=== PATIENT | female | born 1980 | race Caucasian/White ===

== ENCOUNTER → 2017-02-05 | Outpatient (CLI) | payer BC ==
--- NOTE | 2017-02-05 08:44 | US ---
EXAMINATION TYPE: US pelvic complete DATE OF EXAM: 02/05/2017 7:49 AM COMPARISON: US on PACS March 10, 2011. CLINICAL HISTORY: R10.2 PELVIC PAIN. TECHNIQUE: Transvaginal (TV)pelvic ultrasound. Date of LMP: Ablation 4 months ago. Spotting 1 week ago. EXAM MEASUREMENTS: Uterus: 8.3 x 4.4 x 3.5 cm cm Endometrial Stripe: 0.2 cm Right Ovary: 2.4 x 2.1 x 1.9 cm cm Left Ovary: 3.2x 2.2 x 2.1 cm cm TECHNOLOGIST IMPRESSION: wnl 1. Uterus: Anteverted, wnl 2. Endometrium: heterogeneous 3. Right Ovary: wnl, with follicles. Largest = 1.0 x 1.0 x 0.9 cm 4. Left Ovary: wnl, with follicles. Largest = 1.2 x 1.1 x 1.0 cm 5. Bilateral Adnexa: wnl 6. Posterior cul-de-sac: wnl Uterus is heterogeneous in appearance. Endometrium is thinned. No free fluid is seen in pelvis. Both ovaries are identified. Scattered follicles are noted. No suspicious adnexal masses are seen. IMPRESSION: No significant finding is seen to account for patient's symptoms of pain .
== END | disposition home or self-care (01) ==
LOC: RADUSWWP 07:24
PROVIDERS: ATTEND Obstetrics & Gynecology
DX: R10.2 Pelvic and perineal pain (principal)
CPT/HCPCS: 76830; 76856

== ENCOUNTER → 2017-04-15 | Outpatient (CLI) | payer BC ==
[2017-04-15 09:15] LABS: Basophils % (A) 0 %; CH 30.2; CHCM 33.1; Eosinophils # (A) 0.1 k/uL (0-0.7); Eosinophils % (A) 1 %; HCT 43.2 % (34.0-46.0); HDW 2.42; HGB 14.1 gm/dL (11.4-16.0); Luc % (Auto) 1; Lymphocytes # (A) 1.3 k/uL (1.0-4.8); Lymphocytes % (A) 15 %; MCHC 32.7 g/dL (31.0-37.0); MCV 91.7 fL (80.0-100.0); Mean Platelet Volume 6.4; Monocytes # (A) 0.3 k/uL (0-1.0); Monocytes % (A) 4 %; Neutrophils # (A) 6.6 k/uL (1.3-7.7); Neutrophils % (A) 79 %; RBC 4.71 m/uL (3.80-5.40); WBC 8.4 k/uL (3.8-10.6); WBC (Perox) 8.29
[2017-04-15 09:26] LABS: Anion Gap 11 mmol/L; Blood Urea Nitrogen 13 mg/dL (7-17); Calcium 9.5 mg/dL (8.4-10.2); Carbon Dioxide 21 mmol/L (22-30); Chloride 108 mmol/L (98-107); Glucose 94 mg/dL (74-99); Non-African American GFR(MDRD) >60 (>60 ml/min/1.73 sqM); Potassium 4.1 mmol/L (3.5-5.1); Sodium 140 mmol/L (137-145)
== END | disposition home or self-care (01) ==
LOC: LABPAT 08:28
PROVIDERS: ATTEND Obstetrics & Gynecology
DX: Z01.812 Encounter for preprocedural laboratory examination (principal)
CPT/HCPCS: 80048; 85025

== ENCOUNTER 2017-04-23 06:24 | Observation (INO) | payer BC ==
[2017-04-20 12:22] VITALS: BMI 22.8
[~2017-04-23 06:24] MED LIST: DEXAMETHASONE SOD PHOSPHATE 10 MG/ML 1 ML VIAL IV ONE; MIDAZOLAM 2 MG/2 ML VIAL IV PRN; ONDANSETRON 4 MG/2 ML VIAL IVP ONE; ceFAZolin 2 GM in SODIUM CHLORIDE 0.9% 100 ML IVPB ONE
[2017-04-23] MEDS ORDERED: SCOPOLAMINE 1.5MG/72HR PATCH TRANSDERM ONE (07:10)
[2017-04-23] MEDS: LACTATED RINGERS 1,000 ML IV SCH ×2 (07:10→15:26)
--- NOTE | 2017-04-23 07:47 | P.HPOB ---
History of Present Illness H&P Date: 04/23/17 Chief Complaint: Pelvic pain: Post-ablative syndrome Patient is a 36 year old female who had a NovaSure ablation in May 2016. Since that time she's had chronic worsening pain. Her pain is gone but she is unable to function and is progressively worsened over the last 3 months. 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 Risks/ benefits/alternatives to a robotic-assisted left scopic hysterectomy were reviewed with the patient in detail and included but were not limited to damage to bladder, bowel, vascular injuries, nerve injuries, bleeding, infection. all questions have been answered for her prior to proceeding to the operating room. Her physical exam reveals vital signs be saved stable and afebrile. Heart regular, lungs clear, extremities without pain. Pelvic exam other than mild to moderate tenderness over the uterus was unremarkable. Abdominal exam revealed no gross findings. Positive bowel sounds were noted. Assessment chronic pelvic pain status post ablation. Plan robotic-assisted laparoscopic hysterectomy with possible BSO. Past Medical History Additional Past Medical History / Comment(s): irregular and heavy menses with cramping,hx ovarian cysts History of Any Multi-Drug Resistant Organisms: None Reported Additional Past Surgical History / Comment(s): laparoscopic x 3 Past Anesthesia/Blood Transfusion Reactions: Family History of Problems w/ Anesthesia, Postoperative Nausea & Vomiting (PONV) Additional Past Anesthesia/Blood Transfusion Reaction / Comment(s): mom has PONV. no hx blood transfusion Past Psychological History: No Psychological Hx Reported Smoking Status: Never smoker Past Alcohol Use History: Occasional Past Drug Use History: None Reported - Past Family History Mother Family Medical History: Cancer Additional Family Medical History / Comment(s): breast Father Family Medical History: Asthma Medications and Allergies Home Medications Medication Instructions Recorded Confirmed Type Fexofenadine/Pseudoephedrine 1 each PO DAILY 06/06/16 04/20/17 History [Graciela-D 24 Hour Tablet] Triamcinolone Acetonide [Nasacort] 1 spray EA NOSTRIL DAILY 06/06/16 04/20/17 History Allergies Allergy/AdvReac Type Severity Reaction Status Date / Time Sulfa (Sulfonamide Allergy Rash/Hives Verified 04/23/17 06:55 Antibiotics) Exam Osteopathic Statement: *. No significant issues noted on an osteopathic structural exam other than those noted in the History and Physical/Consult. - Vital Signs Vital signs: Vital Signs Temp Pulse Resp BP Pulse Ox 04/23/17 06:49 97.4 F L 68 16 126/78 99
[2017-04-23] MEDS ORDERED: HYDROmorphone (PF) 1 MG/ML ONE (08:02)
[2017-04-23] MEDS ORDERED: fentaNYL (PF) 50 MCG/ML 2 ML AMP ONE (08:02)
[2017-04-23] MEDS ORDERED: GLYCOPYRROLATE 0.2 MG/ML 2 ML VIAL ONE (08:02)
[2017-04-23] MEDS ORDERED: LIDOCAINE 1% INJ 10MG/ML (20 ML MDV) ONE (08:02)
[2017-04-23] MEDS ORDERED: MIDAZOLAM 2 MG/2 ML VIAL ONE (08:02)
[2017-04-23] MEDS ORDERED: SUCCINYLCHOLINE CHLORIDE 100 MG/5 ML SYR IV ONE (08:02)
[2017-04-23] MEDS ORDERED: PHENYLEPHRINE-0.9% NACL SYG 1 MG/10 ML SYRINGE ONE (08:02)
[2017-04-23] MEDS ORDERED: ROCURONIUM BROMIDE 10 MG/ML 10 ML VIAL IV ONE (08:02)
[2017-04-23] MEDS ORDERED: PROPOFOL 10 MG/ML 20 ML VIAL IV ONE (08:02)
[2017-04-23] MEDS ORDERED: KETOROLAC 30 MG/ML 1 ML VIAL ONE (08:02)
[2017-04-23] MEDS ORDERED: NEOSTIGMINE 1 MG/ML 10 ML VIAL ONE (08:02)
[2017-04-23] MEDS ORDERED: BUPIVACAINE (PF) 0.25% 30 ML VIAL SQ ONE (08:20)
[2017-04-23] MEDS ORDERED: Acetaminophen-Codeine 300-30mg TAB PO PRN ×2 (09:04)
[2017-04-23] MEDS ORDERED: diphenhydrAMINE 50 MG/ML 1 ML VIAL IVP PRN (09:04)
[2017-04-23] MEDS ORDERED: SIMETHICONE 80 MG CHEWABLE PO PRN (09:04)
[2017-04-23] MEDS ORDERED: ONDANSETRON 4 MG/2 ML VIAL IVP PRN (09:04)
--- NOTE | 2017-04-23 09:12 | P.OP ---
Date of Procedure: 04/23/17 Preoperative Diagnosis: Pelvic pain Postoperative Diagnosis: Same Procedure(s) Performed: Robotic-assisted laparoscopic hysterectomy Implants: Anesthesia: JEAN MARIE Surgeon: Francis Taveras Underpresser Hand #1: Loren Lal Estimated Blood Loss (ml): 10 IV fluids (ml): 900 Urine output (ml): 500 Pathology: other (Uterus and cervix) Condition: stable Disposition: floor Indications for Procedure: Operative Findings: Perforation noted at time of dilation. Suspect adenomyosis await final tissue pathology. Ovaries appeared grossly normal Description of Procedure: Patient was taken to the operating suite where a general anesthetic was found be adequate. She was prepped and draped in the normal sterile fashion and placed in the dorsal lithotomy position. Initially a speculum was inserted in the vagina and the anterior lip of the cervix was grasped a single-tooth tenaculum. Sutures then placed at 3-9/10 clock position in the cervix was dilated. During the sounding process that uterus perforated and was felt to be only 6 cm in length. A 6 cm with a 3 cm cup was then inserted using a Orabrush manipulator other instruments were removed and the John catheter was placed. Gloves were then changed and attention was turned to the abdominal portion of the procedure. Approximately 2 mL of quarter percent Marcaine was then injected periumbilically and through this injected anesthetic a 5 mm skin incision was made. Through this incision under direct visualization with an optical trocar and sleeve the camera was inserted once peritoneal placement was assured gas was allowed to fully insufflate the abdomen. 2 lateral ports were then placed proxy 10 cm from the umbilicus both the right and left-hand sides and through these incisions 8 mm robotic ports and sleeves were inserted. A fourth port and sleeve was then inserted slightly superior to and between the left lateral and the medial port. Robotic camera port was then inserted again all these were done under direct visualization. Once this was accomplished robot was brought in and docked at this point I did break scrub and go to the console using a scissor and the one arm and a Maryland grasper in the 2 arm initially observations the pelvis were done uterus was then elevated and tipped to the right-hand side and utero-ovarian ligament was cauterized and cut mesosalpinx tissues and then the fallopian tube were then also cauterized and cut all the way to the round ligament. Remley was then cauterized and cut and development of the anterior and posterior broad ligament leaves was done while skeletonizing the vascularity. Once down to the bladder flap bladder flap was undermined with Maryland and incised with a scissor all the way across face uterus and the bladder was bluntly dissected off of the operative field. Uterine within tipped to left-hand side and in a similar fashion the right-hand side of the uterus and tissues were developed. Once this was accomplished Maryland grasper was then used to cauterize uterine vasculature bilaterally. Balloon on the manipulator was then inflated and anterior colpotomy was made with a scissor. We followed these couple all the way around in a 3 and 60 fashion cheating head when necessary to obtain and maintain excellent hemostasis. Once 3 and 60 was obtained uterus was brought into the vagina to maintain pneumoperitoneum. Area was irrigated C no significant bleeding instruments were exchanged for a make suture cut and a cardia grasper and the vaginal cuff was closed with 20 be lock suture. Once this was accomplished pelvis was again irrigated instruments were then removed and gas was allowed to expel from the abdomen. 5 deep breaths were provided during this process. Robot was then undocked and moved out of the operative field and attention was then turned to the incision repair which Dr. Lal did with 4-0 Vicryl with the remaining 8 mL of quarter percent Marcaine injected around the incisions. and a cystoscopy which I did showing good flow from both ureteral jets. Once this was accomplished all instruments were removed sponge, lap, needle counts were all correct 2 and patient was then taken to the recovery room in stable and satisfactory condition following reinsertion of the John catheter.
[2017-04-23] MEDS: HYDROmorphone 1 MG/ML 1 ML SYRINGE IVP PRN ×2 (09:25→09:30)
[2017-04-23] MEDS ORDERED: RACEPINEPHRINE 2.25% NEB 0.5 ML NEBU INHALATION ONE (09:37)
[2017-04-23] MEDS: KETOROLAC 30 MG/ML 1 ML VIAL IVP PRN ×2 (15:21→21:20)
[2017-04-23] MEDS ORDERED: SENNOSIDES-DOCUSATE SODIUM 1 EACH TAB PO SCH (21:00)
[2017-04-24] MEDS: KETOROLAC 30 MG/ML 1 ML VIAL IVP PRN ×2 (03:23→09:20)
[2017-04-24 07:32] LABS: Basophils % (A) 0 %; CH 30.6; CHCM 32.9; Eosinophils # (A) 0.1 k/uL (0-0.7); Eosinophils % (A) 1 %; HCT 37.2 % (34.0-46.0); HDW 2.27; Luc # (Auto) 0.11; Luc % (Auto) 2; Lymphocytes # (A) 1.8 k/uL (1.0-4.8); Lymphocytes % (A) 24 %; MCH 30.1 pg (25.0-35.0); MCHC 32.3 g/dL (31.0-37.0); MCV 93.4 fL (80.0-100.0); Mean Platelet Volume 6.7; Monocytes # (A) 0.3 k/uL (0-1.0); Monocytes % (A) 5 %; Neutrophils # (A) 5.1 k/uL (1.3-7.7); Neutrophils % (A) 68 %; RBC 3.99 m/uL (3.80-5.40); RDW 12.8 % (11.5-15.5); WBC 7.4 k/uL (3.8-10.6); WBC (Perox) 7.38
[2017-04-24 08:17] VITALS: RESP 20
[2017-04-24 08:18] VITALS: BP 108/59; PULSE 58; TEMP 98.2
--- NOTE | 2017-04-24 08:49 | P.DS ---
Providers Date of admission: 04/24/17 03:43 Expected date of discharge: 04/24/17 Attending physician: Francis Taversa Primary care physician: [facility] Course: Patient is doing very well postop day 1 from a left scopic hysterectomy. She is involuting, voiding, and she is tolerating her diet. She has passed flatus. Vital signs are stable and afebrile. Heart regular, lungs clear, extremities without pain. Abdomen soft and incisions are intact. Bowel sounds are noted. Assessment postop day 1. Plan discharged home follow up with me in 1 week. Prescription for Ultram and Motrin have been provided. Discharge instructions were thoroughly reviewed and all questions are answered for her prior to discharge. She is stable for discharge at this time. Patient Condition at Discharge: Good Plan - Discharge Summary New Discharge Prescriptions: New Ibuprofen [Motrin] 600 mg PO Q6HR PRN #30 tab PRN Reason: Pain traMADol HCl [Ultram] 50 mg PO Q4H PRN #30 tab PRN Reason: Pain No Action Triamcinolone Acetonide [Nasacort] 1 spray EA NOSTRIL DAILY Fexofenadine/Pseudoephedrine [Graciela-D 24 Hour Tablet] 1 each PO DAILY Ibuprofen [Motrin] 600 mg PO Q6HR PRN #30 tab PRN Reason: Pain Discharge Medication List Fexofenadine/Pseudoephedrine [Graciela-D 24 Hour Tablet] 1 each PO DAILY [History] Triamcinolone Acetonide [Nasacort] 1 spray EA NOSTRIL DAILY 06/06/16 [History] Ibuprofen [Motrin] 600 mg PO Q6HR PRN #30 tab 06/12/16 [Rx] Ibuprofen [Motrin] 600 mg PO Q6HR PRN #30 tab 04/24/17 [Rx] traMADol HCl [Ultram] 50 mg PO Q4H PRN #30 tab 04/24/17 [Rx] Follow up Appointment(s)/Referral(s): Francis Taveras DO [Doctor of Osteopathic Medicine] - 1 Week Activity/Diet/Wound Care/Special Instructions: No heavy lifting, limit stairs and driving and pelvic rest. If any high temperatures, heavy bleeding, or severe pain call my office. Discharge Disposition: HOME SELF-CARE
== END 2017-04-24 10:25 | disposition home or self-care (01) ==
LOC: OR 06:24 → 4FBP 09:08 → OR 04-24 03:43
PROVIDERS: ADMIT Obstetrics & Gynecology; ATTEND Obstetrics & Gynecology
DX: N80.0 Endometriosis of uterus (principal); D26.1 Other benign neoplasm of corpus uteri; G89.29 Other chronic pain; N92.1 Excessive and frequent menstruation with irregular cycle; Z88.2 Allergy status to sulfonamides; N99.71 Accidental puncture and laceration of a genitourinary system organ or structure during a genitourinary system procedure; Y65.8 Other specified misadventures during surgical and medical care
CPT/HCPCS: 58550; S2900; 81025; 85025; 86850; 86900; 86901; 88307; 88341; 88342

== ENCOUNTER → 2017-10-05 | Outpatient (CLI) | payer BC ==
--- NOTE | 2017-10-05 17:52 | US ---
EXAMINATION TYPE: US pelvic complete DATE OF EXAM: 10/05/2017 COMPARISON: 02/05/2017 CLINICAL HISTORY: R39.82 Bladder Pain. Pelvic pain, partial hysterectomy TECHNIQUE: Transabdominal (TA) Date of LMP: unknown EXAM MEASUREMENTS: Uterus: Surgically absent Endometrial Stripe: Surgically absent Right Ovary: 2.5 x 1.9 x 1.8 cm Left Ovary: 3.2 x 1.7 x 1.4 cm 1. Uterus: surgically absent vaginal cuff = 0.9cm 2. Endometrium: Surgically absent 3. Right Ovary: follicles noted 4. Left Ovary: follicles noted 5. Bilateral Adnexa: wnl IMPRESSION: Negative transabdominal pelvic sonogram.
--- NOTE | 2017-10-05 17:53 | US ---
EXAMINATION TYPE: US abd limited kidneys/bladder DATE OF EXAM: 10/05/2017 COMPARISON: NONE CLINICAL HISTORY: R39.82 Bladder Pain. Pelvic pain EXAM MEASUREMENTS: Liver Length: 12.6 cm Gallbladder Wall: 0.2 cm CBD: 0.2 cm Right Kidney: 9.9 x 3.4 x 4.6 cm Left Kidney: 9.0 x 5.0 x 4.4 cm Pancreas: visualized portions appear wnl Liver: wnl Gallbladder: no evidence of stones CBD: wnl Right Kidney: no evidence of hydronephrosis or mass Left Kidney: no evidence of hydronephrosis or mass Bladder: wnl Bilateral Jets Seen yes IMPRESSION: Normal retroperitoneal sonogram exam. No evidence of renal mass or obstruction.
== END | disposition home or self-care (01) ==
LOC: RADUSMAIN 16:42
PROVIDERS: ATTEND Family Medicine
DX: R39.82 Chronic bladder pain (principal)
CPT/HCPCS: 76705; 76770; 76856

== ENCOUNTER → 2019-04-22 | Outpatient (CLI) | payer BC ==
--- NOTE | 2019-04-22 10:14 | US ---
EXAMINATION TYPE: US abdomen complete DATE OF EXAM: 04/22/2019 COMPARISON: 10/05/2017 CLINICAL HISTORY: R93.89 Abnormal xray @ [facility]. Patient states having chronic back pain. Patient state s having an xray of spine at office that showed abnormality. EXAM MEASUREMENTS: Liver Length: 13.9 cm Gallbladder Wall: 0.1 cm CBD: 0.2 cm CHD: 0.2 cm Spleen: 10.9 cm Right Kidney: 9.1 x 4.7 x 3.8 cm Left Kidney: 9.6 x 4.6 x 5.0 cm Pancreas: wnl Liver: wnl Gallbladder: wnl Evidence for sonographic Fernandez's sign: neg CBD: wnl CHD: wnl Spleen: wnl Right Kidney: wnl Left Kidney: wnl Upper IVC: wnl Abd Aorta: wnl The liver is homogenous. The intrahepatic portion of the IVC and proximal abdominal aorta are within normal limits. There is no evidence of cholelithiasis. Common bile duct is unremarkable. The visu alized portions of the pancreas are homogenous. The spleen is unremarkable. Kidneys are symmetric a nd free of hydronephrosis. No renal lesions are seen. IMPRESSION: Unremarkable abdominal ultrasound.
== END | disposition home or self-care (01) ==
LOC: RADUSWWP 09:03
PROVIDERS: ATTEND Internal Medicine
DX: R93.89 Abnormal findings on diagnostic imaging of other specified body structures (principal)
CPT/HCPCS: 76700

== ENCOUNTER → 2020-01-16 | Outpatient (CLI) | payer BC ==
[2020-01-16 17:15] LABS: T4, Free (Free Thyroxine) 0.96 ng/dL (0.78-2.19)
[2020-01-16 23:36] LABS: Estradiol 44.6 pg/mL; Follicle Stimulating Hormone 8.4 mIU/mL; Luteinizing Hormone 4.5 mIU/mL; Prolactin 6.9 ng/mL (2.8-29.2)
--- NOTE | 2020-01-18 07:32 | MM ---
Reason for exam: screening (asymptomatic). Last mammogram was performed 3 years and 3 months ago. History: Family history of breast cancer in mother at age 54. Physical Findings: A clinical breast exam by your physician is recommended on an annual basis and results should be correlated with mammographic findings. MG 3D Screening Mammo W/Cad Bilateral CC and MLO view(s) were taken. Prior study comparison: October 23, 2016, bilateral MG 3d diag mammo w/cad [facility]. October 19, 2015, bilateral MG 3d diag mammo w/cad [facility]. The breast tissue is extremely dense which could obscure a lesion on mammography. No significant changes when compared with prior studies. ASSESSMENT: Benign, BI-RAD 2 RECOMMENDATION: Routine screening mammogram of both breasts in 1 year.
== END | disposition home or self-care (01) ==
LOC: RADMAMWWP 15:09
PROVIDERS: ATTEND Obstetrics & Gynecology
DX: Z12.31 Encounter for screening mammogram for malignant neoplasm of breast (principal)
CPT/HCPCS: 36415; 77063; 77067; 82670; 83001; 83002; 84146; 84439; 84443; 84479

== ENCOUNTER → 2021-06-24 | Outpatient (CLI) | payer BC ==
--- NOTE | 2021-06-25 09:10 | MM ---
Reason for exam: screening (asymptomatic). Last mammogram was performed 1 year and 5 months ago. History: Family history of breast cancer in mother at age 54. Physical Findings: A clinical breast exam by your physician is recommended on an annual basis and results should be correlated with mammographic findings. MG 3D Screening Mammo W/Cad Bilateral CC and MLO view(s) were taken. Prior study comparison: January 16, 2020, bilateral MG 3d screening mammo w/cad. October 23, 2016, bilateral MG 3d diag mammo w/cad [facility]. The breast tissue is extremely dense which could obscure a lesion on mammography. Benign appearing bilateral calcifications. No significant changes when compared with prior studies. ASSESSMENT: Benign, BI-RAD 2 RECOMMENDATION: Routine screening mammogram of both breasts in 1 year.
== END | disposition home or self-care (01) ==
LOC: RADMAMWWP 09:44
PROVIDERS: ATTEND Internal Medicine
DX: Z12.31 Encounter for screening mammogram for malignant neoplasm of breast (principal); Z80.3 Family history of malignant neoplasm of breast
CPT/HCPCS: 77063; 77067

== ENCOUNTER → 2022-06-25 | Outpatient (CLI) | payer BC ==
--- NOTE | 2022-06-26 09:56 | MM ---
Reason for Exam: Screening (asymptomatic). Last screening mammogram was performed 12 month(s) ago. Patient History: Menarche at age 11. First Full-Term at age 21. Hysterectomy at age 36. Mother had breast cancer, age 54. Risk Values: Ophelia 5 year model risk: 1.3%. NCI Lifetime model risk: 18.0%. Prior Study Comparison: 10/23/2016 Bilateral Diagnostic Mammogram, [facility]. 01/16/2020 Bilateral Screening Mammogram, [facility]. 06/24/2021 Bilateral Screening Mammogram, [facility]. Tissue Density: The breast tissue is heterogeneously dense. This may lower the sensitivity of mammography. Findings: Analyzed By CAD. There is no suspicious group of microcalcifications or new suspicious mass in either breast. Overall Assessment: Negative, BI-RAD 1 Management: Screening Mammogram of both breasts in 1 year. A clinical breast exam by your physician is recommended on an annual basis and results should be correlated with mammographic findings. Electronically signed and approved by: Jair Vance DO
== END | disposition home or self-care (01) ==
LOC: RADMAMWWP 12:47
PROVIDERS: ATTEND Family Medicine
DX: Z12.31 Encounter for screening mammogram for malignant neoplasm of breast (principal); Z80.3 Family history of malignant neoplasm of breast
CPT/HCPCS: 77063; 77067

== ENCOUNTER 2022-11-01 08:36 | Emergency (ER) | payer BC ==
[2022-11-01 08:48] VITALS: RESP 18; TEMP 98.4
[2022-11-01] MEDS ORDERED: SODIUM CHLORIDE 0.9% 1,000 ML IV STA (08:56)
[2022-11-01] MEDS ORDERED: HYDROmorphone 0.5 MG/0.5 ML SYRINGE IVP STA (08:56)
[2022-11-01] MEDS ORDERED: ONDANSETRON 4 MG/2 ML VIAL IVP STA (08:56)
--- NOTE | 2022-11-01 09:02 | ED ---
Abdominal Pain HPI - General Chief Complaint: Abdominal Pain Stated Complaint: abd pain Time Seen by Provider: 11/01/22 08:48 Source: patient Mode of arrival: ambulatory - History of Present Illness Initial Comments: Patient is a 41-year-old female presenting with chief complaint of abdominal pain. Patient states that the pain started at 1 AM today sudden onset, severe and stabbing in nature. Located primarily in the right upper quadrant and epigastric region. No nausea, vomiting, diarrhea. Patient states that when the pain is at its worst it does radiate to the right shoulder. Past surgical history includes hysterectomy. No fever or chills. No chest pain, difficulty breathing, palpitations. - Related Data Home Medications Medication Instructions Recorded Confirmed Fexofenadine/Pseudoephedrine 1 each PO DAILY 06/06/16 04/20/17 [Graciela-D 24 Hour Tablet] Triamcinolone Acetonide [Nasacort] 1 spray EA NOSTRIL DAILY 06/06/16 04/20/17 Previous Rx's Medication Instructions Recorded Ibuprofen [Motrin] 600 mg PO Q6HR PRN #30 tab 06/12/16 Ibuprofen [Motrin] 600 mg PO Q6HR PRN #30 tab 04/24/17 traMADol HCl [Ultram] 50 mg PO Q4H PRN #30 tab 04/24/17 Allergies Allergy/AdvReac Type Severity Reaction Status Date / Time Sulfa (Sulfonamide Allergy Rash/Hives Verified 11/01/22 08:48 Antibiotics) Review of Systems ROS Statement: Those systems with pertinent positive or pertinent negative responses have been documented in the HPI. ROS Other: All systems not noted in ROS Statement are negative. Past Medical History Additional Past Medical History / Comment(s): irregular and heavy menses with cramping,hx ovarian cysts History of Any Multi-Drug Resistant Organisms: None Reported Past Surgical History: Hysterectomy Additional Past Surgical History / Comment(s): laparoscopic x 3. spinal fusion [id number] Past Anesthesia/Blood Transfusion Reactions: Family History of Problems w/ Anesthesia, Postoperative Nausea & Vomiting (PONV) Additional Past Anesthesia/Blood Transfusion Reaction / Comment(s): mom has PONV. no hx blood transfusion Past Psychological History: No Psychological Hx Reported Smoking Status: Never smoker Past Alcohol Use History: Occasional Past Drug Use History: None Reported - Past Family History Mother Family Medical History: Cancer Additional Family Medical History / Comment(s): breast Father Family Medical History: Asthma General Exam Limitations: no limitations General appearance: alert, in no apparent distress Head exam: Present: atraumatic, normocephalic, normal inspection Eye exam: Present: normal appearance Neck exam: Present: normal inspection Respiratory exam: Present: normal lung sounds bilaterally. Absent: respiratory distress, wheezes, rales, rhonchi, stridor Cardiovascular Exam: Present: regular rate, normal rhythm, normal heart sounds. Absent: systolic murmur, diastolic murmur, rubs, gallop, clicks GI/Abdominal exam: Present: soft, tenderness (R sided). Absent: distended, guarding, rebound, rigid Neurological exam: Present: alert, oriented X3, CN II-XII intact Psychiatric exam: Present: normal affect, normal mood Skin exam: Present: warm, dry, intact, normal color. Absent: rash Course Vital Signs 11/01/22 11/01/22 08:43 13:05 Temperature 98.4 F Pulse Rate 115 H 99 Respiratory 18 18 Rate Blood Pressure 133/83 114/72 O2 Sat by Pulse 100 100 Oximetry Medical Decision Making - Medical Decision Making Patient is a 41-year-old female presenting with chief complaint of abdominal pain. On physical examination abdomen is soft and nondistended, there is some tenderness in the right upper quadrant and epigastric region. EKG shows no ischemic changes. CBC shows no leukocytosis or anemia. Coags are WNL. D-dimer is 0.42. Electrolytes are WNL. Troponin is less than 0.012. Urine shows no sign of infection or bleeding. Abdominal ultrasound shows no evidence for acute process. CT shows no definitive acute process in the upper abdomen to explain the patient's pain there is nondistended gallbladder and no hiatal hernia. 3 ap pendicoliths are seen in the appendix, however patient is not having any right lower quadrant pain at this time. On reassessment patient reports improvement in pain. Discussed these results with her. Patient is agreeable to discharge home. Follow-up with PCP. Report back to ER with any new or worsening symptoms. Discussed return parameters and answered all questions. Patient conveyed verbal understanding and agreed to the plan. I discussed this case in detail with my attending Dr. Ledezma - Lab Data Result diagrams: 11/01/22 09:05 11/01/22 09:05 Lab Results 11/01/22 11/01/22 11/01/22 Range/Units 09:05 09:05 09:05 WBC 10.0 (3.8-10.6) k/uL RBC 4.95 (3.80-5.40) m/uL Hgb 15.3 (11.4-16.0) gm/dL Hct 43.9 (34.0-46.0) % MCV 88.7 (80.0-100.0) fL MCH 30.8 (25.0-35.0) pg MCHC 34.7 (31.0-37.0) g/dL RDW 12.7 (11.5-15.5) % Plt Count 197 (150-450) k/uL MPV 7.4 Neutrophils % 91 % Lymphocytes % 4 % Monocytes % 3 % Eosinophils % 2 % Basophils % 0 % Neutrophils # 9.1 H (1.3-7.7) k/uL Lymphocytes # 0.4 L (1.0-4.8) k/uL Monocytes # 0.3 (0-1.0) k/uL Eosinophils # 0.2 (0-0.7) k/uL Basophils # 0.0 (0-0.2) k/uL PT 10.0 (9.0-12.0) sec INR 0.9 (<1.2) APTT 25.2 (22.0-30.0) sec D-Dimer (<0.60) mg/L FEU Sodium (137-145) mmol/L Potassium (3.5-5.1) mmol/L Chloride (98-107) mmol/L Carbon Dioxide (22-30) mmol/L Anion Gap mmol/L BUN (7-17) mg/dL Creatinine (0.52-1.04) mg/dL Est GFR (CKD-EPI)AfAm (>60 ml/min/1.73 sqM) Est GFR (CKD-EPI)NonAf (>60 ml/min/1.73 sqM) Glucose (74-99) mg/dL Plasma Lactic Acid Nacho (0.7-2.0) mmol/L Calcium (8.4-10.2) mg/dL Total Bilirubin (0.2-1.3) mg/dL AST (14-36) U/L ALT (4-34) U/L Alkaline Phosphatase (38-126) U/L Troponin I (0.000-0.034) ng/mL Total Protein (6.3-8.2) g/dL Albumin (3.5-5.0) g/dL Amylase (30-110) U/L Lipase (23-300) U/L Urine Color Yellow Urine Appearance Clear (Clear) Urine pH 6.5 (5.0-8.0) Ur Specific Brant 1.029 (1.001-1.035) Urine Protein Trace H (Negative) Urine Glucose (UA) Negative (Negative) Urine Ketones 2+ H (Negative) Urine Blood Negative (Negative) Urine Nitrite Negative (Negative) Urine Bilirubin Negative (Negative) Urine Urobilinogen <2.0 (<2.0) mg/dL Ur Leukocyte Esterase Negative (Negative) 11/01/22 11/01/22 11/01/22 Range/Units 09:05 09:05 09:05 WBC (3.8-10.6) k/uL RBC (3.80-5.40) m/uL Hgb (11.4-16.0) gm/dL Hct (34.0-46.0) % MCV (80.0-100.0) fL MCH (25.0-35.0) pg MCHC (31.0-37.0) g/dL RDW (11.5-15.5) % Plt Count (150-450) k/uL MPV Neutrophils % % Lymphocytes % % Monocytes % % Eosinophils % % Basophils % % Neutrophils # (1.3-7.7) k/uL Lymphocytes # (1.0-4.8) k/uL Monocytes # (0-1.0) k/uL Eosinophils # (0-0.7) k/uL Basophils # (0-0.2) k/uL PT (9.0-12.0) sec INR (<1.2) APTT (22.0-30.0) sec D-Dimer 0.42 (<0.60) mg/L FEU Sodium 140 (137-145) mmol/L Potassium 3.8 (3.5-5.1) mmol/L Chloride 105 (98-107) mmol/L Carbon Dioxide 24 (22-30) mmol/L Anion Gap 11 mmol/L BUN 18 H (7-17) mg/dL Creatinine 0.78 (0.52-1.04) mg/dL Est GFR (CKD-EPI)AfAm >90 (>60 ml/min/1.73 sqM) Est GFR (CKD-EPI)NonAf >90 (>60 ml/min/1.73 sqM) Glucose 111 H (74-99) mg/dL Plasma Lactic Acid Nacho 1.5 (0.7-2.0) mmol/L Calcium 9.6 (8.4-10.2) mg/dL Total Bilirubin 1.2 (0.2-1.3) mg/dL AST 26 (14-36) U/L ALT 24 (4-34) U/L Alkaline Phosphatase 81 (38-126) U/L Troponin I (0.000-0.034) ng/mL Total Protein 7.9 (6.3-8.2) g/dL Albumin 5.0 (3.5-5.0) g/dL Amylase 72 (30-110) U/L Lipase 126 (23-300) U/L Urine Color Urine Appearance (Clear) Urine pH (5.0-8.0) Ur Specific Brant (1.001-1.035) Urine Protein (Negative) Urine Glucose (UA) (Negative) Urine Ketones (Negative) Urine Blood (Negative) Urine Nitrite (Negative) Urine Bilirubin (Negative) Urine Urobilinogen (<2.0) mg/dL Ur Leukocyte Esterase (Negative) 11/01/22 Range/Units 10:30 WBC (3.8-10.6) k/uL RBC (3.80-5.40) m/uL Hgb (11.4-16.0) gm/dL Hct (34.0-46.0) % MCV (80.0-100.0) fL MCH (25.0-35.0) pg MCHC (31.0-37.0) g/dL RDW (11.5-15.5) % Plt Count (150-450) k/uL MPV Neutrophils % % Lymphocytes % % Monocytes % % Eosinophils % % Basophils % % Neutrophils # (1.3-7.7) k/uL Lymphocytes # (1.0-4.8) k/uL Monocytes # (0-1.0) k/uL Eosinophils # (0-0.7) k/uL Basophils # (0-0.2) k/uL PT (9.0-12.0) sec INR (<1.2) APTT (22.0-30.0) sec D-Dimer (<0.60) mg/L FEU Sodium (137-145) mmol/L Potassium (3.5-5.1) mmol/L Chloride (98-107) mmol/L Carbon Dioxide (22-30) mmol/L Anion Gap mmol/L BUN (7-17) mg/dL Creatinine (0.52-1.04) mg/dL Est GFR (CKD-EPI)AfAm (>60 ml/min/1.73 sqM) Est GFR (CKD-EPI)NonAf (>60 ml/min/1.73 sqM) Glucose (74-99) mg/dL Plasma Lactic Acid Nacho (0.7-2.0) mmol/L Calcium (8.4-10.2) mg/dL Total Bilirubin (0.2-1.3) mg/dL AST (14-36) U/L ALT (4-34) U/L Alkaline Phosphatase (38-126) U/L Troponin I <0.012 (0.000-0.034) ng/mL Total Protein (6.3-8.2) g/dL Albumin (3.5-5.0) g/dL Amylase (30-110) U/L Lipase (23-300) U/L Urine Color Urine Appearance (Clear) Urine pH (5.0-8.0) Ur Specific Brant (1.001-1.035) Urine Protein (Negative) Urine Glucose (UA) (Negative) Urine Ketones (Negative) Urine Blood (Negative) Urine Nitrite (Negative) Urine Bilirubin (Negative) Urine Urobilinogen (<2.0) mg/dL Ur Leukocyte Esterase (Negative) Disposition Clinical Impression: Abdominal pain Disposition: HOME SELF-CARE Condition: Good Instructions (If sedation given, give patient instructions): Abdominal Pain (ED) Additional Instructions: Follow-up with PCP. Report back to ER with any new or worsening symptoms. Is patient prescribed a controlled substance at d/c from ED?: No Referrals: Taylor Ku MD [Primary Care Provider] - 1-2 days Time of Disposition: 12:26
[2022-11-01 09:16] LABS: Appearance,Urine Clear (Clear); Basophils % (A) 0 %; Bilirubin,Urine Negative (Negative); Blood,Urine Negative (Negative); Color,Urine Yellow; Eosinophils # (A) 0.2 k/uL (0-0.7); Eosinophils % (A) 2 %; Glucose,Urine (UA) Negative (Negative); HCT 43.9 % (34.0-46.0); HGB 15.3 gm/dL (11.4-16.0); Ketones,Urine 2+ (Negative); Leukocyte Esterase,Urine Negative (Negative); Lymphocytes # (A) 0.4 k/uL (1.0-4.8); Lymphocytes % (A) 4 %; MCH 30.8 pg (25.0-35.0); MCHC 34.7 g/dL (31.0-37.0); MCV 88.7 fL (80.0-100.0); Mean Platelet Volume 7.4; Monocytes # (A) 0.3 k/uL (0-1.0); Monocytes % (A) 3 %; Neutrophils # (A) 9.1 k/uL (1.3-7.7); Neutrophils % (A) 91 %; Nitrite,Urine Negative (Negative); PH, Urine 6.5 (5.0-8.0); Platelet Count 197 k/uL (150-450); Protein,Urine Trace (Negative); RBC 4.95 m/uL (3.80-5.40); RDW 12.7 % (11.5-15.5); Specific Gravity,Urine 1.029 (1.001-1.035); Urobilinogen,Urine <2.0 mg/dL (<2.0)
[2022-11-01 09:24] LABS: INR 0.9 (<1.2); Partial Thromboplastin Time 25.2 sec (22.0-30.0)
[2022-11-01 09:32] LABS: ALT 24 U/L (4-34); AST 26 U/L (14-36); African American GFR (CKD) >90 (>60 ml/min/1.73 sqM); Alkaline Phosphatase 81 U/L (38-126); Amylase 72 U/L (30-110); Anion Gap 11 mmol/L; Blood Urea Nitrogen 18 mg/dL (7-17); Calcium 9.6 mg/dL (8.4-10.2); Carbon Dioxide 24 mmol/L (22-30); Chloride 105 mmol/L (98-107); Glucose 111 mg/dL (74-99); Lipase 126 U/L (23-300); Non-African American GFR(CKD) >90 (>60 ml/min/1.73 sqM); Potassium 3.8 mmol/L (3.5-5.1); Sodium 140 mmol/L (137-145); Total Bilirubin 1.2 mg/dL (0.2-1.3); Total Protein 7.9 g/dL (6.3-8.2)
--- NOTE | 2022-11-01 09:55 | US ---
EXAMINATION TYPE: US abdomen limited DATE OF EXAM: 11/01/2022 COMPARISON: 04/22/2019 CLINICAL HISTORY: RUQ/Epigastric pain. TECHNIQUE: Multiple sonographic images of the right upper quadrant are obtained. FINDINGS: EXAM MEASUREMENTS: Liver Length: 14.5 cm Gallbladder Wall: 0.2 cm CBD: 0.3 cm Right Kidney: 10.5 x 3.5 x 5.0 cm MANAGER DOMESTIC NOTES: Pancreas: Tail obscured by overlying bowel gas Liver: wnl Gallbladder: wnl Evidence for sonographic Fernandez's sign: no CBD: wnl Right Kidney: No hydronephrosis or masses seen IMPRESSION: No evidence for acute process.
--- NOTE | 2022-11-01 12:06 | CT ---
EXAMINATION TYPE: CT abdomen pelvis w con CT DLP: 719.6 mGycm, Automated exposure control for dose reduction was used. DATE OF EXAM: 11/01/2022 11:35 AM COMPARISON: None. CLINICAL INDICATION:Female, 41 years old with history of RUQ and epigastric pain; RUQ and epigastric pain TECHNIQUE: Axial CT of the abdomen and pelvis. Sagittal and coronal reformats were created on a [employer] workstation. Contrast used:100 mL of Isovue 300 with IV Contrast, Oral contrast used: without Oral Contrast FINDINGS: LOWER CHEST: Unremarkable ABDOMEN LIVER: Diffusely hypoattenuating parenchyma. GALLBLADDER AND BILE DUCTS: Gallbladder is nondistended. No intraductal biliary dilation. PANCREAS: Unremarkable. SPLEEN: Unremarkable. ADRENAL GLANDS: Unremarkable. KIDNEYS AND URETERS: No evidence of hydronephrosis or renal calculus. The ureters are unremarkable. PELVIS BLADDER: Unremarkable REPRODUCTIVE: Unremarkable. ABDOMEN & PELVIS STOMACH AND BOWEL: No evidence of bowel obstruction. The stomach is distended with ingested contents. There are 3 appendicoliths within the appendix measuring up to 3 mm. Series 202 image 52. PERITONEUM: No evidence of pneumoperitoneum or free fluid. VASCULATURE: No evidence of aortic aneurysm. MUSCULOSKELETAL: No acute osseous abnormalities,fixation changes to the spine with hardware intact. LYMPH NODES: No gross evidence for lymphadenopathy. SOFT TISSUE/ABDOMINAL WALL: Unremarkable IMPRESSION: 1. No definitive acute process in the upper abdomen to explain patient's pain. Nondistended gallblad josr. No hiatal hernia. 2. At least 3 appendicoliths are seen in the appendix. 3. Hepatic steatosis.
[2022-11-01 13:06] VITALS: BP 114/72; PULSE 99
== END 2022-11-01 13:06 | disposition home or self-care (01) ==
LOC: EC 08:36
DX: R10.9 Unspecified abdominal pain (principal); K76.0 Fatty (change of) liver, not elsewhere classified; Z88.2 Allergy status to sulfonamides
CPT/HCPCS: 36415; 93005; 85379; 80053; 82150; 83605; 83690; 84484; 85025; 85610; 85730; 81003; 76705; 74177; 99285; 96374; 96375; 96361 ×4; J2405; J1170; Q9967

== ENCOUNTER → 2022-11-13 | Outpatient (CLI) | payer BC ==
--- NOTE | 2022-11-13 10:02 | NM ---
EXAMINATION TYPE: NM hepatobiliary w EF DATE OF EXAM: 11/13/2022 COMPARISON: NONE INDICATION: Right upper quadrant pain TECHNIQUE: After the intravenous administration of 4.5 mCi Tc 99m Mebrofenin hepatobiliary scintigrap hy is performed. Images were obtained immediately post injection. FINDINGS: There is prompt uptake and excretion of radiotracer by the liver. Extrahepatic ducts are identified at 2 minutes. The gallbladder is visualized within 2 minutes. At one hour 8 ounces of oral ensure plus is given to mimic CCK and gallbladder ejection fraction is c alculated at 47 %, which is in the normal range. (Normal >35% and <80%.). IMPRESSION: 1. Normal hepatobiliary scan
== END | disposition home or self-care (01) ==
LOC: RADNMMAIN 06:37
PROVIDERS: ATTEND Family Medicine
DX: R10.11 Right upper quadrant pain (principal)
CPT/HCPCS: 78226; A9537

== ENCOUNTER → 2023-08-20 | Outpatient (CLI) | payer BC ==
--- NOTE | 2023-08-21 21:11 | MM ---
Reason for Exam: Screening (asymptomatic). Last mammogram was performed 1 year(s) and 2 month(s) ago. Patient History: Menarche at age 11. First Full-Term at age 21. Hysterectomy at age 36. Mother had breast cancer, age 54. Risk Values: Ophelia 5 year model risk: 1.4%. NCI Lifetime model risk: 17.9%. Prior Study Comparison: 01/16/2020 Bilateral Screening Mammogram, [facility]. 06/24/2021 Bilateral Screening Mammogram, [facility]. 06/25/2022 Bilateral MG 3D screening mammo w/cad, [facility]. Tissue Density: The breast tissue is heterogeneously dense. This may lower the sensitivity of mammography. Findings: Analyzed By CAD. Unchanged areas of bilateral asymmetric densities. There is no suspicious group of microcalcifications or new suspicious mass in either breast. Overall Assessment: Benign, BI-RAD 2 Management: Screening Mammogram of both breasts in 1 year. . Patient should continue monthly self-breast exams. A clinical breast exam by your physician is recommended on an annual basis. This exam should not preclude additional follow-up of suspicious palpable abnormalities. Note on Ophelia scores and lifetime risk: 1. A Ophelia score greater than 3% is considered moderate risk. If this is the case, consider specialist referral to assess eligibility for a risk reducing agent. 2. If overall lifetime risk for the development of breast cancer is 20% or higher, the patient may qualify for future screening with alternating mammogram and breast MRI. Electronically signed and approved by: Miguel Angel Alvarado M.D. Radiologist
== END | disposition home or self-care (01) ==
LOC: RADMAMWWP 16:19
PROVIDERS: ATTEND Family Medicine
DX: Z12.31 Encounter for screening mammogram for malignant neoplasm of breast (principal); Z80.3 Family history of malignant neoplasm of breast
CPT/HCPCS: 77063; 77067

== ENCOUNTER → 2023-12-29 | Outpatient (CLI) | payer BC ==
[2023-12-29 18:19] LABS: HCT 40.8 % (37.2-46.3); HGB 13.5 g/dL (12.0-15.0); MCH 29.1 pg (27.0-32.0); MCHC 33.1 g/dL (32.0-37.0); MCV 87.9 FL (80.0-97.0); Mean Platelet Volume 9.3 FL (9.5-12.2); NRBC Per 100 WBC 0 X 10*3/uL (0.00-0.01); Platelet Count 263 X 10*3/uL (140-440); RBC 4.64 X 10*6/uL (4.10-5.20); RDW 12.4 % (11.5-14.5); WBC 7.47 X 10*3/uL (4.50-10.00)
== END | disposition home or self-care (01) ==
LOC: LABWHC1 15:08
PROVIDERS: ATTEND Nurse Practitioner Family
DX: Z13.88 Encounter for screening for disorder due to exposure to contaminants (principal)
CPT/HCPCS: 36415; 83655; 85027

== ENCOUNTER → 2024-09-07 | Outpatient (CLI) | payer BC ==
--- NOTE | 2024-09-08 09:31 | MM ---
Reason for Exam: Screening (asymptomatic). Last screening mammogram was performed 12 month(s) ago. Patient History: Menarche at age 11. First Full-Term at age 21. Hysterectomy at age 36. Mother had breast cancer, age 54. Risk Values: Ophelia 5 year model risk: 1.5%. NCI Lifetime model risk: 17.7%. Prior Study Comparison: 06/24/2021 Bilateral Screening Mammogram, [facility]. 06/25/2022 Bilateral MG 3D screening mammo w/cad, [facility]. 08/20/2023 Bilateral MG 3D screening mammo w/cad, [facility]. Tissue Density: The breasts are heterogeneously dense, which may obscure small masses. Findings: Analyzed By CAD. There is no suspicious group of microcalcifications or new suspicious mass in either breast. Overall Assessment: Benign, BI-RAD 2 Management: Screening Mammogram of both breasts in 1 year. . Patient should continue monthly self-breast exams. A clinical breast exam by your physician is recommended on an annual basis. This exam should not preclude additional follow-up of suspicious palpable abnormalities. Note on Ophelia scores and lifetime risk: 1. A Ophelia score greater than 3% is considered moderate risk. If this is the case, consider specialist referral to assess eligibility for a risk reducing agent. 2. If overall lifetime risk for the development of breast cancer is 20% or higher, the patient may qualify for future screening with alternating mammogram and breast MRI. [facility], , 09/08/2024 9:28 AM. Electronically signed and approved by: Ravi Mcbride M.D. Radiologis
== END | disposition home or self-care (01) ==
LOC: RADMAMWWP 16:13
PROVIDERS: ATTEND Family Medicine
DX: Z12.31 Encounter for screening mammogram for malignant neoplasm of breast
CPT/HCPCS: 77063; 77067